=== PATIENT | male | born 1955 | race Hispanic/Latino ===

== ENCOUNTER 2023-07-16 08:30 | Day surgery (SDC) | payer OTHER ==
[2023-07-15 11:36] VITALS: BMI 30.4
[2023-07-16] MEDS ORDERED: fentaNYL 50 mcg/mL 1 mL Vial ONE (11:51)
[2023-07-16] MEDS ORDERED: PROPOFOL 20 ML ONE (11:51)
== END 2023-07-16 13:12 | disposition home or self-care (01) ==
LOC: SDC 08:30
PROVIDERS: ATTEND Internal Medicine Gastroenterology
PROC: 0DB68ZX Excision of Stomach, Via Natural or Artificial Opening Endoscopic, Diagnostic (ICD-10-PCS; principal; 2023-07-16)
DX: K31.7 Polyp of stomach and duodenum (principal); K21.9 Gastro-esophageal reflux disease without esophagitis; I10 Essential (primary) hypertension; I25.10 Atherosclerotic heart disease of native coronary artery without angina pectoris; Z95.5 Presence of coronary angioplasty implant and graft
CPT/HCPCS: J2704; J3010